=== PATIENT | female | born 1975 | race Caucasian/White ===

== ENCOUNTER 2021-01-19 06:20 | Day surgery (SDC) | payer OTHER, SELFPAY ==
[2021-01-13 17:13] LABS: BASOPHILS % (AUTO) 0.3 % (0.0-2.0); EOSINOPHILS # (AUTO) 0.1 K/uL (0.0-0.4); HEMATOCRIT 39.1 % (36-48); HEMOGLOBIN 13.1 g/dL (12.0-16.0); LYMPHOCYTES # (AUTO) 2.2 K/uL (1.0-5.5); LYMPHOCYTES % (AUTO) 23.6 % (20.5-51.5); MEAN CORPUSCULAR HEMOGLOBIN 29 pg (27-31); MEAN CORPUSCULAR HGB CONC 34 % (32-36); MEAN CORPUSCULAR VOLUME 86 fL (79.0-98.0); MONOCYTES # (AUTO) 0.5 K/uL (0.0-1.0); MONOCYTES % (AUTO) 5.1 % (1.7-9.3); NEUTROPHILS # (AUTO) 6.5 K/uL (1.8-7.7); PLATELET COUNT (AUTO) 242 K/uL (130-430); RED BLOOD CELL COUNT(AUTO) 4.57 MIL/uL (4.2-6.2); RED CELL DISTRIBUTION WIDTH 13.1 % (9.0-15.0); WHITE BLOOD COUNT (AUTO) 9.2 K/uL (4.8-10.8)
[2021-01-13 17:20] LABS: ALBUMIN 3.5 g/dL (3.4-4.8); CALCIUM 8.8 mg/dL (8.4-11.0)
[~2021-01-19] VITALS: Ht 157.5 cm; Wt 67.6 kg
[~2021-01-19 06:20] MED LIST: CEFAZOLIN 2 GM IVPB PREMIX 50 ML IV ONE
[2021-01-19 06:41] LABS: HCG,QUAL RESULT NEGATIVE (NEGATIVE)
[2021-01-19] MEDS ORDERED: CEFAZOLIN SOD 2 GM in D5W 50 ML IV ONE (07:00)
[2021-01-19] MEDS ORDERED: VITD2000 PO (07:40)
[2021-01-19] MEDS ORDERED: BIOT5TAB PO (07:40)
[2021-01-19] MEDS ORDERED: MULT-1089 PO (07:40)
[2021-01-19] MEDS ORDERED: ASCO500T20 PO (07:40)
[2021-01-19] MEDS ORDERED: LIDOCAINE/EPI 1% 1:100000 20 ML VIAL INJ ONE (08:28)
[2021-01-19] MEDS ORDERED: SEVOFLURANE 15 MIN GAS INH ONE (08:28)
[2021-01-19] MEDS ORDERED: KETOROLAC TROMETHAMINE 30 MG VIAL IVP ONE (08:28)
[2021-01-19] MEDS ORDERED: NS IRRIG SOLN 1000 ML IR ONE (08:28)
[2021-01-19] MEDS ORDERED: PROPOFOL 200MG/ 20ML VIAL (DIPRIVAN) IV ONE (08:28)
[2021-01-19] MEDS ORDERED: LR 1,000 ML IV.SOLN IV ONE (08:28)
[2021-01-19] MEDS ORDERED: DEXAMETHASONE SOD PHOSPHATE 4 MG/ML VIAL IVP ONE (08:28)
[2021-01-19] MEDS ORDERED: ONDANSETRON HCL 4 MG/2 ML VIAL IVP ONE (08:28)
[2021-01-19] MEDS ORDERED: fentaNYL CITRATE/PF 100 MCG/2 ML AMP IVP ONE (08:28)
[2021-01-19] MEDS ORDERED: METOCLOPRAMIDE HCL 10 MG/2 ML VIAL IVP ONE (08:28)
[2021-01-19] MEDS ORDERED: MIDAZOLAM HCL 5 MG/5 ML VIAL IVP ONE (08:28)
[2021-01-19] MEDS ORDERED: NALOXONE HCL 0.4 MG/ML AMP (NARCAN) IVP PRN (09:30)
[2021-01-19] MEDS ORDERED: HYDROmorphone 1 MG/ML INJ. CARTRIDGE IVP PRN ×2 (09:30)
[2021-01-19] MEDS ORDERED: KETOROLAC TROMETHAMINE 30 MG VIAL IVP PRN (09:30)
[2021-01-19] MEDS ORDERED: LR 1,000 ML IV SCH (09:30)
[2021-01-19] MEDS ORDERED: MEPERIDINE HCL/PF 25 MG/ML DISP.SYRIN IVP PRN (09:30)
[2021-01-19] MEDS ORDERED: ONDANSETRON HCL 4 MG/2 ML VIAL IVP PRN ×2 (09:30→12:15)
[2021-01-19] MEDS ORDERED: ONDANSETRON 4 MG ODT TAB PO PRN (12:15)
[2021-01-19] MEDS ORDERED: HYDROcodone/ACETAMIN 5-325 MG TAB (NORCO/ VICODIN) PO PRN (12:15)
[2021-01-19] MEDS ORDERED: ACETAMINOPHEN 500 MG TABLET PO PRN (12:15)
[2021-01-19 13:00] VITALS: BP_SYST 108
[2021-01-19 13:20] VITALS: BP_SYST 113
[2021-01-19] MEDS: KCL 20 mEq in D5/0.45NS 1000mL 1,000 ML IV SCH (15:55)
[2021-01-19] MEDS: CALCIUM 500 MG/TAB PO SCH ×2 (15:55→22:38)
[2021-01-19 20:00] VITALS: BP_SYST 112
[2021-01-19 22:09] LABS: CALCIUM 8.8 mg/dL (8.4-11.0)
[2021-01-20] VITALS: BP_SYST 106
[2021-01-20] MEDS: KCL 20 mEq in D5/0.45NS 1000mL 1,000 ML IV SCH ×2 (00:12→06:40)
[2021-01-20] MEDS ORDERED: LEVOTHYROXINE SODIUM 0.112 MG TABLET PO SCH (07:00)
[2021-01-20 07:34] LABS: ALBUMIN 2.7 g/dL (3.4-4.8); CALCIUM 8.2 mg/dL (8.4-11.0)
[2021-01-20 08:00] VITALS: BP_SYST 103
[2021-01-20] MEDS ORDERED: MULTIVITAMINS TAB 1 TABLET PO SCH (09:00)
[2021-01-20] MEDS: CALCIUM 500 MG/TAB PO SCH (09:28)
[2021-01-20 13:37] VITALS: BP_SYST 113
== END 2021-01-20 15:00 | disposition home or self-care (01) ==
LOC: SDS 06:20 → SMU 06:20 → EDSTATUS 08:00 → SMU 12:55 → SDS 01-20 15:00
PROVIDERS: ATTEND Otolaryngology
DX: E04.2 Nontoxic multinodular goiter (principal)
CPT/HCPCS: 36415 ×3; 60240; 71046; 82040 ×2; 82310 ×2; 83970; 84703 ×2; 85025; 87081; 87426; 88307; 93005; 94010; C1782; J0690; J1100; J1885; J2250; J2405; J2704; J2765; J3010; J7060; J7120

== ENCOUNTER 2021-07-23 14:37 | Emergency (ER) | payer OTHER, SELFPAY ==
[~2021-07-23] VITALS: Ht 157.5 cm; Wt 70.3 kg
[2021-07-23 14:37] VITALS: BP_SYST 102
[~2021-07-23 14:37] MED LIST changes: +ASCO500T20 PO; +BIOT5TAB PO; -CEFAZOLIN 2 GM IVPB PREMIX 50 ML IV ONE; +MULT-1089 PO; +VITD2000 PO
[2021-07-23] MEDS ORDERED: PRED20TA PO (16:32)
[2021-07-23 16:47] VITALS: BP_SYST 102
== END 2021-07-23 16:47 | disposition home or self-care (01) ==
LOC: SED 14:37
DX: U07.1 COVID-19 (principal); Z79.899 Other long term (current) drug therapy
CPT/HCPCS: 71045; 99283

== ENCOUNTER 2021-11-02 11:18 | Outpatient (CLI) | payer OTHER ==
[~2021-11-02 11:18] MED LIST changes: +PRED20TA PO
== END 2021-11-02 18:12 | disposition home or self-care (01) ==
LOC: SUS 11:18
PROVIDERS: ATTEND Internal Medicine
DX: N63.14 Unspecified lump in the right breast, lower inner quadrant (principal); N63.11 Unspecified lump in the right breast, upper outer quadrant; N63.12 Unspecified lump in the right breast, upper inner quadrant; N63.21 Unspecified lump in the left breast, upper outer quadrant; N63.22 Unspecified lump in the left breast, upper inner quadrant; R92.8 Other abnormal and inconclusive findings on diagnostic imaging of breast; R92.2 Inconclusive mammogram
CPT/HCPCS: 76641; 77066

== ENCOUNTER 2021-11-13 08:03 | Outpatient (CLI) | payer OTHER | END 2021-11-13 21:17 | disposition home or self-care (01) | LOC: SUS 08:03 | PROVIDERS: ATTEND Internal Medicine | DX: K63.89 Other specified diseases of intestine (principal); M54.50 Low back pain, unspecified; M54.9 Dorsalgia, unspecified; R10.9 Unspecified abdominal pain; Z87.442 Personal history of urinary calculi; N28.89 Other specified disorders of kidney and ureter | CPT/HCPCS: 74178; 76376; 76770; 76856; Q9967 ==